=== PATIENT | female | born 1975 | race Two or more races ===

== ENCOUNTER 2022-06-03 20:50 | Emergency (ER) | payer OTHER, MEDICAID ==
[~2022-06-03] VITALS: Ht 172.7 cm; Wt 88.2 kg
[2022-06-03 21:35] VITALS: BP 136/77
[2022-06-03] MEDS ORDERED: PRED20TA2 PO (22:58)
[2022-06-03] MEDS ORDERED: CEPH-510 PO (22:58)
[2022-06-03] MEDS ORDERED: CLOT1CRE78 EX (22:58)
[2022-06-03] MEDS ORDERED: methylPREDNISolone SOD SUCC 125 MG/2 ML VL IM ONE (23:00)
== END 2022-06-03 23:33 | disposition home or self-care (01) ==
LOC: ER 20:55
DX: B35.4 Tinea corporis (principal); Z90.710 Acquired absence of both cervix and uterus

== ENCOUNTER 2022-06-10 19:35 | Emergency (ER) | payer OTHER, MEDICAID ==
[~2022-06-10] VITALS: Ht 172.7 cm; Wt 87.4 kg
[~2022-06-10 19:35] MED LIST: CEPH-510 PO; CLOT1CRE78 EX; PRED20TA2 PO
[2022-06-10 20:17] VITALS: BP 134/89
[2022-06-11] MEDS ORDERED: PRED20TA2 PO (00:07)
[2022-06-11] MEDS ORDERED: methylPREDNISolone SOD SUCC 125 MG/2 ML VL IM ONE (00:15)
== END 2022-06-11 00:19 | disposition home or self-care (01) ==
LOC: ER 19:38
DX: B35.4 Tinea corporis (principal); Z90.710 Acquired absence of both cervix and uterus
CPT/HCPCS: 96372; 99283; J2930